=== PATIENT | male | born 1970 | race Hispanic/Latino ===

== ENCOUNTER 2019-06-16 21:41 | Emergency (ER) | payer OTHER ==
[~2019-06-16] VITALS: Ht 175.3 cm; Wt 73.6 kg
[2019-06-16 22:14] LABS: HEMATOCRIT 35.3 % (39.0-50.0); HEMOGLOBIN 12.1 g/dl (14.0-18.0); IMMATURE GRANULOCYTES 0.3 % (0.0-5.0); MEAN CELL VOLUME 89.6 fL CALC (80.0-100.0); MEAN CORPUSCULAR HGB 30.7 pG CALC (26.0-32.0); MEAN CORPUSCULAR HGB CONC 34.3 g/L CALC (32.0-36.0); NEUT# 4.56 thou/uL (1.82-7.42); RED BLOOD COUNT 3.94 mill/uL (4.70-6.10); RED CELL DISTRI WIDTH 11.9 % (11.5-15.5); URINE BILIRUBIN - DIPSTICK NEGATIVE (NEGATIVE); URINE BLOOD DIPSTICK NEGATIVE (NEGATIVE); URINE COLOR YELLOW; URINE GLUCOSE - DIPSTICK NEGATIVE (NEGATIVE); URINE KETONE NEGATIVE (NEGATIVE); URINE LEUK ESTERASE NEGATIVE (NEGATIVE); URINE NITRITE - DIPSTICK NEGATIVE (Negative); URINE PROTEIN - DIPSTICK NEGATIVE (NEG-TRACE); URINE SPECIFIC GRAVITY 1.025; URINE UROBILINOGEN - DIPSTICK 0.2 E.U./dL (0.2)
[2019-06-16 22:16] LABS: BARBITURATES NEGATIVE (NEGATIVE); COCAINE NEGATIVE (NEGATIVE); METHADONE NEGATIVE (NEGATIVE); OXCYCODONE NEGATIVE (NEGATIVE); TETRAHYDROCANNABIONOL POSITIVE (NEGATIVE); TRICYLIC ANTIDEPRESSANTS NEGATIVE (NEGATIVE)
[2019-06-16 22:27] LABS: ALKALINE PHOSPHATASE 54 u/l (38-126); AMYLASE 59 u/l (30-110); ANION GAP 11 (6-22 (CALC)); BILIRUBIN, TOTAL 0.7 mg/dL (0.0-1.4); BUN 20 mg/dL (9-20); BUN/CREATININE RATIO 23 (12-20 (CALC)); CARBON DIOXIDE 28 mmol/l (22-30); CHLORIDE 106 mmol/l (95-108); CREATININE 0.9 mg/dL (0.7-1.3); GFR > 60 ML/MIN (>=60 (CALC)); GFR FOR AFR.AMER. > 60 ML/MIN (>=60 (CALC)); LIPASE 90 u/l (23-300); POTASSIUM 3.8 mmol/l (3.5-5.1); SGOT/AST 21 u/l (17-59); SODIUM 141 mmol/l (137-146); TOTAL PROTEIN 6.7 g/dL (6.3-8.2)
[2019-06-16 22:38] LABS: MYOGLOBIN 39 ng/mL (0 - 121)
[2019-06-16 23:44] VITALS: BP 110/64
[2019-06-16] MEDS ORDERED: IBUPROFEN600 MG PO (23:55)
== END 2019-06-16 23:57 | disposition home or self-care (01) | DRG 204 ==
LOC: ED 21:41
PROVIDERS: Emergency Medicine
DX: R07.81 Pleurodynia (principal); R07.89 Other chest pain

== ENCOUNTER 2019-08-27 22:11 | Emergency (ER) | payer SELFPAY ==
[~2019-08-27] VITALS: Ht 175.3 cm; Wt 75.0 kg
[~2019-08-27 22:11] MED LIST: IBUPROFEN600 MG PO
[2019-08-27] MEDS ORDERED: MOTRIN800 MG PO (23:48)
[2019-08-28 00:40] VITALS: BP 135/72
== END 2019-08-28 00:40 | disposition home or self-care (01) | DRG 558 ==
LOC: ED 22:11
DX: M77.9 Enthesopathy, unspecified (principal)

== ENCOUNTER 2021-01-22 13:42 | Emergency (ER) | payer OTHER ==
[~2021-01-22] VITALS: Ht 175.3 cm; Wt 77.2 kg
[~2021-01-22 13:42] MED LIST changes: +MOTRIN800 MG PO
[2021-01-22] MEDS ORDERED: OFLOXACIN0.3 % OS (14:42)
[2021-01-22 14:56] VITALS: BP 117/71
== END 2021-01-22 14:58 | disposition home or self-care (01) | DRG 125 ==
LOC: ED 13:42
DX: S05.02XA Injury of conjunctiva and corneal abrasion without foreign body, left eye, initial encounter (principal); X58.XXXA Exposure to other specified factors, initial encounter; Y93.89 Activity, other specified; Y92.73 Farm field as the place of occurrence of the external cause; Y99.0 Civilian activity done for income or pay

== ENCOUNTER 2023-01-10 20:46 | Emergency (ER) | payer OTHER ==
[~2023-01-10] VITALS: Ht 175.3 cm; Wt 74.0 kg
[~2023-01-10 20:46] MED LIST changes: +OFLOXACIN0.3 % OS
[2023-01-10 21:21] VITALS: BP 107/75
[2023-01-10 21:30] VITALS: BP 89/50
[2023-01-10 22:01] VITALS: BP 103/58
[2023-01-10 22:18] VITALS: BP 103/58
== END 2023-01-10 22:24 | disposition home or self-care (01) ==
LOC: ED 20:46
DX: S60.012A Contusion of left thumb without damage to nail, initial encounter (principal); W22.8XXA Striking against or struck by other objects, initial encounter; Y92.008 Other place in unspecified non-institutional (private) residence as the place of occurrence of the external cause